=== PATIENT | male | born 1955 | race Caucasian/White ===

== ENCOUNTER 2018-07-26 14:03 | Emergency (ER) | payer MEDICARE, MEDICAID ==
[~2018-07-26] VITALS: Ht 170.2 cm; Wt 159.0 kg
[~2018-07-26 14:03] MED LIST: ALBU18HF2 IH; AMIO200T40 PO; ASPI-1264 PO; CETI1TAB PO; FLAX340P PO; LEVO50TA8 PO; METO50TA16 PO; PHEN30SP5 NS; SENN-93 PO
--- NOTE | 2018-07-26 15:54 | NUR ---
PT TO XRAY
[2018-07-26] MEDS ORDERED: ketorolac tromethamine 15mg/ml inj. IM ONE ×2 (16:00→17:35)
[2018-07-26 16:16] LABS: BASOPHILS # (AUTO) 0.1 X10'3 (0-0.2); BASOPHILS % (AUTO) 0.5 % (0-1); EOSINOPHILS # (AUTO) 0.3 X10'3 (0-0.9); EOSINOPHILS % (AUTO) 2.3 % (0-6); HEMATOCRIT 41.7 % (42.0-52.0); HEMOGLOBIN 13.7 g/dl (14.0-17.9); LYMPHOCYTES # (AUTO) 2.8 X10'3 (1.1-4.8); LYMPHOCYTES % (AUTO) 25.2 % (21-51); MEAN CORPUSCULAR HEMOGLOBIN 29.9 PG (27.0-31.0); MEAN CORPUSCULAR HGB CONC 32.9 % (33.0-36.5); MEAN CORPUSCULAR VOLUME 90.8 FL (78-98); MEAN PLATELET VOLUME 8.9 FL (7.4-10.4); MONOCYTES # (AUTO) 0.6 X10'3 (0-0.9); MONOCYTES % (AUTO) 5.7 % (2-12); NEUTROPHILS # (AUTO) 7.3 X10'3 (1.8-7.7); NEUTROPHILS % (AUTO) 66.3 % (42-75); PLATELET COUNT 270 X10'3 (140-440); RED BLOOD COUNT 4.59 X10'6 (4.70-6.10); RED CELL DISTRIBUTION WIDTH 13.2 % (11.5-14.5); WHITE BLOOD COUNT 11.1 X10'3 (4.5-11.0)
[2018-07-26 16:40] LABS: ALANINE AMINOTRANSFERASE 27 U/L (12-78); ALBUMIN 3.2 G/DL (3.4-5.0); ALBUMIN/GLOBULIN RATIO 0.7 (1.1-1.5); ALKALINE PHOSPHATASE 82 IU/L (46-116); ANION GAP 13 (8-16); ASPARTATE AMINO TRANSFERASE 14 U/L (10-37); BILIRUBIN,TOTAL 0.5 MG/DL (0.1-1.0); BLOOD UREA NITROGEN 22 MG/DL (7-18); BUN/CREATININE RATIO 17.5 (5.4-32.0); C-REACTIVE PROTEIN 13.33 MG/DL (0.0-0.5); CALCIUM 9.1 MG/DL (8.5-10.1); CHLORIDE 104 MMOL/L (99-107); CREATININE 1.26 MG/DL (0.60-1.10); GLUCOSE 103 MG/DL (70-104); POTASSIUM 3.6 MMOL/L (3.5-5.1); SODIUM 141 MMOL/L (135-145); TOTAL CARBON DIOXIDE 23.9 MMOL/L (24-32); TOTAL PROTEIN 7.9 G/DL (6.4-8.2); eGFR 58 ML/MIN
[2018-07-26] MEDS ORDERED: PRED20TA PO (17:35)
[2018-07-26 18:05] VITALS: BP 142/86
== END 2018-07-26 18:08 | disposition home or self-care (01) ==
LOC: ER 14:03
DX: M10.9 Gout, unspecified (principal); I48.91 Unspecified atrial fibrillation; Z98.890 Other specified postprocedural states; Z79.82 Long term (current) use of aspirin; Z79.899 Other long term (current) drug therapy
CPT/HCPCS: 36415; 73630; 80053; 84550; 85025; 85651; 86140; 96372; 99284; J1885

== ENCOUNTER 2024-08-26 14:17 | Outpatient (CLI) | payer MEDICARE, MEDICAID ==
[~2024-08-26 14:17] MED LIST changes: +AMI200T PO; -AMIO200T40 PO
== END 2024-08-26 23:59 | disposition home or self-care (01) ==
LOC: CARD DIAG 14:17
PROVIDERS: ATTEND Internal Medicine Interventional Cardiology
DX: I34.89 Other nonrheumatic mitral valve disorders (principal); I48.0 Paroxysmal atrial fibrillation; R06.02 Shortness of breath; E66.813 Obesity, class 3; R60.0 Localized edema
CPT/HCPCS: 93306

== ENCOUNTER 2024-12-14 15:44 | Outpatient (CLI) | payer MEDICARE, MEDICAID ==
--- NOTE | 2024-12-14 16:39 | RADIOLOGY REPORT ---
CT brain without contrast CLINICAL INDICATION: OTHER CYSTS OF ORAL REGION, NOT ELSEWHERE CLASSIFI FINDINGS: The study was performed in a multidetector scanner. This study performed taking axial image s from the skull base up to the vertex. Both brain and bone windows are photographed. Dose lowering techniques have been used including automated exposure control and adjustment of mA and /or KV according to patient size. Normal and symmetrical shape and density of brain parenchyma above and below the tentorium is seen. T here is no mass, midline shift or hydrocephalus. No intra/extra-axial collections demonstrated. There is no intracranial hemorrhage. The calvarium is intact. IMPRESSION: 1. Mild age-appropriate cortical atrophy. 2. No acute intracranial pathology Computed Tomographic Radiation Dosimetry Report: Total CTDI vol = 64 mGy Total DLP = 14 30 mGy-cm All CT scans at this medical facility are performed using dose modulation techniques as appropriate to a performed exam including the following: Automated exposure control was utilized; adjustment of the M A and/or KvP according to patient size; and use of iterative reconstruction technique.
--- NOTE | 2024-12-14 16:42 | RADIOLOGY REPORT ---
CT facial bones HISTORY: MULTIPLE ORAL CYSTS TECHNIQUE: Serial axial images were performed through the facial bones and reformatted in sagittal an d coronal planes. FINDINGS: The paranasal sinuses are pneumatized and clear. No masses of the nasopharynx tonsillar pillars or tongue base. No erosion of the mandible or maxilla. No masses in the salivary glands No enlarged upper cervical lymph nodes IMPRESSION: 1. No cysts seen in the oral cavity however it is recommended that MRI be performed due to superior c ontrast resolution compared to this noncontrast CT exam Computed Tomographic Radiation Dosimetry Report: Total CTDI vol = 55 mGy Total DLP = 1011 mGy-cm All CT scans at this medical facility are performed using dose modulation techniques as appropriate t o a performed exam including the following: Automated exposure control was utilized; adjustment of the MA and/or KvP according to patient size; a nd use of iterative reconstruction technique.
== END 2024-12-14 23:59 | disposition home or self-care (01) ==
LOC: RAD 15:44
PROVIDERS: ATTEND Nurse Practitioner Occupational Health
DX: K09.8 Other cysts of oral region, not elsewhere classified (principal); G31.9 Degenerative disease of nervous system, unspecified
CPT/HCPCS: 70450; 70486